=== PATIENT | female | born 1985 | race Caucasian/White ===

== ENCOUNTER 2016-11-30 21:49 | Outpatient (CLI) | payer MEDICAID ==
[~2016-11-30] VITALS: Ht 162.6 cm; Wt 71.4 kg
[~2016-11-30 21:49] MED LIST: ACET-141 PO; CEPH-443 PO; ERYT1OIN6 LEFT EYE; NPH10OT LEFT EAR
[2016-11-30 22:21] VITALS: BP 129/85; PULSE 73; RESP 18; Ht 162.6 cm; Wt 71.4 kg
[2016-11-30] MEDS ORDERED: PREN-93 PO (22:24)
--- NOTE | 2016-12-01 02:14 | PN ---
Date/Time of Note Date/Time of Note DATE: 12/01/16 TIME: 02:09 OB Subjective Subjective Subjective 31 Year-old with SIUP at 38 1/7 wks presents with a chief complaint of ucs. She has been receiving her care with Dr. Flowers. She states good movement. She denies nausea, vomiting, shortness of breath, chest pain, and abdominal pain between contractions, headache, visual changes, vaginal bleeding or LOF. OB Objective Objective Objective General: Patient appears well, alert and oriented, NAD, appropriate mood and affect ABD: gravid, soft, non-tender. Back: No CVA tenderness (B/L) LE: No clubbing, cyanosis, edema, thigh or calf tenderness bilaterally FHT: 135 bpm , moderate variability with acceleration, no deceleration-category I Contractions: Q 3-9 min.Pt is comfortable with those SVE: /-3/ceph/post/intact membrane OB Assessment/Plan Other plan: 31 Year-old with SIUP at 38 1/7 wks presents with a chief complaint of ucs. Patient is comfortable and ucs are mild - FHR: No sign of metabolic acidosis- Category I - Symptoms and sign of labor, preeclampsia, kick count discussed with patient, she voiced understanding. All of her questions answered. - Patient was discharged home in stable condition with the appropriate discharge instructions provided. I would like patient to have close follow-up with her primary physician or outpatient clinic in 1-2 days or return to the triage for worsening symptoms or any other urgent concerns. GISELLE CARNES December 01, 2016 02:14
== END 2016-11-30 23:43 | disposition home or self-care (01) ==
LOC: L-D 21:49 → OBT 21:49
PROVIDERS: ATTEND Obstetrics & Gynecology
DX: O62.9 Abnormality of forces of labor, unspecified (principal); Z3A.38 38 weeks gestation of pregnancy
CPT/HCPCS: G0463

== ENCOUNTER 2016-12-02 04:15 | Inpatient (IN) | payer MEDICAID ==
[2016-12-02] VITALS (17 sets, daily range): BP systolic 108–148; BP diastolic 57–96; PULSE 69–97; RESP 16–21; Ht 157.5 cm; Wt 71.0 kg
[~2016-12-02] VITALS: Ht 157.5 cm; Wt 71.0 kg
[~2016-12-02 04:15] MED LIST changes: -ACET-141 PO; -CEPH-443 PO; -ERYT1OIN6 LEFT EYE; -NPH10OT LEFT EAR; +PREN-93 PO
[2016-12-02] MEDS ORDERED: LACTATED RINGER'S 1,000 ML IV SCH (05:21)
[2016-12-02] MEDS ORDERED: METHYLERGONOVINE 0.2 MG INJ IM PRN ×2 (05:30→16:00)
[2016-12-02] MEDS ORDERED: LIDOCAINE 1% (MPF) 30 ML INJ INJ PRN (05:30)
[2016-12-02] MEDS ORDERED: LACTATED RINGER'S 1,000 ML IV PRN (05:30)
[2016-12-02] MEDS ORDERED: OXYTOCIN 30 UNITS/LR 500 ML IV PRN ×2 (05:30→16:00)
[2016-12-02] MEDS ORDERED: OXYTOCIN 30 UNITS/LR 500 ML IV SCH ×2 (05:30)
[2016-12-02] MEDS ORDERED: IBUPROFEN 600 MG TAB PO PRN (05:30)
[2016-12-02] MEDS ORDERED: BUTORPHANOL 2 MG INJ IV PRN (05:30)
[2016-12-02] MEDS ORDERED: CARBOPROST 250 MCG INJ IM PRN ×2 (05:30→16:00)
[2016-12-02] MEDS ORDERED: AMPICILLIN 2 GM/NS (PMX) 100 ML IV ONE (05:30)
[2016-12-02] MEDS ORDERED: MISOPROSTOL 200 MCG TAB PR PRN ×2 (05:30→16:00)
[2016-12-02 05:49] LABS: ADD SCAN DIFF NO
[2016-12-02] MEDS ORDERED: MAGNESIUM SULFATE 4 GM/100 ML 100 ML ONE (05:49)
[2016-12-02] MEDS ORDERED: MAGNESIUM SULFATE 4 GM/100 ML 100 ML IV ONE (06:00)
--- NOTE | 2016-12-02 06:00 | TRIAGE ---
OB Triage Datetime Report Generated by CPN: 12/02/2016 05:59 Datetime: 12/02/2016 05:35 Vaginal Exam Dilatation (cms): 9.5 Effacement (%): 100 Station: 0 Exam By: long term Membrane Status: Bulging Datetime: 12/02/2016 05:05 Stage of : Labor Assessment Type: Admission Assessment Vaginal Bleeding: None Maternal Assessment Level of Consciousness: Fully Conscious DTR's/Clonus: DTRs 2+; No Clonus Headache: Denies Blurred Vision: No Respiratory Effort: Unlabored; Regular Rhythm; Equal Expansion Breath Sounds, Left: Clear and Equal Breath Sounds, Right: Clear and Equal Nausea/Vomiting: Denies RUQ Epigastric Pain: Denies Lower Extremities Edema: None Degree: None Upper Extremities Edema: None Degree: None Facial Edema: None Fall Risk Assessment History of Falling: (0) No Secondary Diagnosis: (0) No Ambulatory Aid: (0) Bedrest/Nurse Assist IV Therapy: (20) Yes Gait: (0) Normal/Bedrest/Immobile Mental Status: (0) Oriented to Own Ability Fall Score: 20 Fall Risk Score Definition: No Risk: No action required Labor Evaluation Frequency: 2-3 Duration (sec)2399: 60-90 Quality: Moderate Pattern: Normal: <= 5 Contractions in 10 Minutes Resting Tone [place]: Relaxed Heart Rate FHR Baseline Rate: 120 Variability: Moderate 6-25 bpm Accelerations: 15X15 Decelerations: None Category: Category I Pain Assessment Pain Scale: 7 Pain Presence: Intermittent Pain Type: Contraction Pain Location: Abdomen Pain Goal: 4 Membrane Status: Bulging Datetime: 12/02/2016 04:50 Time of Arrival: 12/02/2016 04:50 EGA: 38.3 Arrived By: Stretcher Arrived From: TRIAGE Chief Complaint: uc's x3days Movement: Present Contractions: Regular Contractions: q4min Rupture of Membranes: Denies Vaginal Bleeding: None Vaginal Discharge: Denies Recent Sexual Intercouse: Denies Abdominal Trauma: Not Applicable Time Provider Notified: 12/02/2016 05:00 Provider Notified: delshad Initial Plan: efm, call ob Datetime: 12/02/2016 04:40 Vaginal Exam Dilatation (cms): 8.0 Effacement (%): 100 Station: -1 Exam By: HALF-WAY Membrane Status: Bulging Datetime: 11/30/2016 23:52 Labor Evaluation Frequency: IRREGULAR Monitor Mode: External Duration (sec)2399: 40-120 Quality: Mild Pattern: Normal: <= 5 Contractions in 10 Minutes Resting Tone [place]: Relaxed Heart Rate FHR Baseline Rate: 125 Monitor Mode: External US FHR Baseline Changes: No Baseline Change Variability: Moderate 6-25 bpm Accelerations: 15X15 Decelerations: None Category: Category I Comments: PT OFF MONITOR Datetime: 11/30/2016 23:43 Stage of : OB Triage Datetime: 11/30/2016 23:37 Pain Assessment Pain Scale: 0 Pain Presence: None/Denies Datetime: 11/30/2016 23:00 Labor Evaluation Frequency: 2-10 Monitor Mode: External Duration (sec)2399: 40-120 Quality: Mild Pattern: Normal: <= 5 Contractions in 10 Minutes Resting Tone [place]: Relaxed Heart Rate FHR Baseline Rate: 125 Monitor Mode: External US FHR Baseline Changes: No Baseline Change Variability: Moderate 6-25 bpm Accelerations: 15X15 Decelerations: None Category: Category I Vaginal Exam Dilatation (cms): 1.0 Effacement (%): 70 Station: -3 Exam By: DANO MOREJON Vaginal Bleeding: None Cervix, Consistency: Firm Cervix, Position: Posterior Presentation 'A': Cephalic Datetime: 11/30/2016 22:14 Stage of : OB Triage Time of Arrival: 11/30/2016 22:14 EGA: 38.1 Arrived By: Wheelchair Arrived From: Home Chief Complaint: CONTRACTIONS SINCE 1800 Movement: Present Time Contractions Began: 11/30/2016 18:00 Rupture of Membranes: Unsure Vaginal Discharge: Present Recent Sexual Intercouse: Denies Abdominal Trauma: Not Applicable Patient Complaints: None Time Provider Notified: 11/30/2016 23:02 (Annotations: Data stored by N on behalf of user) Provider Notified: DR CARNES Initial Plan: CALL AMARA GUZMAN Maternal Assessment Level of Consciousness: Fully Conscious DTR's/Clonus: DTRs 2+; No Clonus Headache: Denies Blurred Vision: No Respiratory Effort: Unlabored; Regular Rhythm; Equal Expansion Breath Sounds, Left: Clear and Equal Breath Sounds, Right: Clear and Equal Nausea/Vomiting: Denies RUQ Epigastric Pain: Denies Lower Extremities Edema: Bilateral Lower Extremities Degree: 1+ Upper Extremities Edema: None Degree: None Facial Edema: None Temperature Route: Oral Fall Risk Assessment History of Falling: (0) No Secondary Diagnosis: (0) No Ambulatory Aid: (0) Bedrest/Nurse Assist IV Therapy: (0) No Gait: (0) Normal/Bedrest/Immobile Mental Status: (0) Oriented to Own Ability Fall Score: 0 Fall Risk Score Definition: No Risk: No action required Monitor Mode: External Monitor Mode: External US Pain Assessment Pain Scale: 0
[2016-12-02 06:04] LABS: BASOPHILS % 0.2 % (0.0-2.0); EOSINOPHILS % 0.5 % (0.0-7.0); HEMATOCRIT 40.4 % (37.0-47.0); HEMOGLOBIN 13.8 g/dl (12.0-16.0); LYMPHOCYTES # 1.9 10^3/ul (0.8-2.9); LYMPHOCYTES % 23.2 % (15.0-51.0); MEAN CORPUSCULAR HEMOGLOBIN 31.9 pg (29.0-33.0); MEAN CORPUSCULAR HGB CONC 34.2 g/dl (32.0-37.0); MEAN CORPUSCULAR VOLUME 93.3 fl (82.0-101.0); MEAN PLATELET VOLUME 9.7 fl (7.4-10.4); MONOCYTE # 0.5 10^3/ul (0.3-0.9); MONOCYTES % 5.6 % (0.0-11.0); NEUTROPHIL # 5.7 10^3/ul (1.6-7.5); NEUTROPHILS % 69.9 % (39.0-77.0); PLATELET COUNT 278 10^3/UL (140-415); RED BLOOD COUNT 4.33 10^6/ul (4.20-5.40); RED CELL DISTRIBUTION WIDTH 13.3 % (11.5-14.5); WHITE BLOOD COUNT 8.1 10^3/ul (4.8-10.8)
[2016-12-02 06:15] LABS: INR 0.88; PARTIAL THROMBOPLASTIN TIME 28.5 Sec (25.0-35.0); PROTIME 11.9 Sec (12.2-14.2); PT RATIO 0.9
[2016-12-02 06:18] LABS: ALBUMIN 3.4 g/dl (3.3-4.9); POTASSIUM 3.7 mmol/L (3.5-5.1)
[2016-12-02] MEDS: MAGNESIUM SULFATE 20 GM/500 ML 500 ML IV SCH ×2 (06:20→17:48)
[2016-12-02 06:21] LABS: ALBUMIN/GLOBULIN RATIO 0.79; BILIRUBIN,INDIRECT 0.7 mg/dl (0-1.1); BILIRUBIN,TOTAL 0.7 mg/dl (0.2-1.3); CREATININE 0.59 mg/dl (0.44-1.00); TOTAL PROTEIN 7.7 g/dl (6.1-8.1)
[2016-12-02 08:39] LABS: ADD UMIC YES; URINE BILIRUBIN (Dip) NEGATIVE (NEGATIVE); URINE BLOOD (Dip) 1+ (NEGATIVE); URINE COLOR LT. YELLOW (YELLOW); URINE GLUCOSE (Dip) NEGATIVE (NEGATIVE); URINE KETONES (Dip) NEGATIVE (NEGATIVE); URINE LEUKOCYTE ESTERASE (Dip) NEGATIVE (NEGATIVE); URINE NITRITE (Dip) NEGATIVE (NEGATIVE); URINE TOTAL PROTEIN (Dip) NEGATIVE (NEGATIVE); URINE UROBILINOGEN (Dip) 0.2 E.U./dL (0.1-1.0)
[2016-12-02 08:57] LABS: BARBITURATES NEGATIVE (NEGATIVE); BENZODIAZEPINES NEGATIVE (NEGATIVE); CANNABINOIDS NEGATIVE (NEGATIVE); COCAINE NEGATIVE (NEGATIVE); OPIATES NEGATIVE (NEGATIVE)
[2016-12-02 09:04] LABS: URINE RBCS 0-2 /HPF (0)
--- NOTE | 2016-12-02 09:06 | LDN ---
Date/Time of Note Date/Time of Note DATE: 12/02/16 TIME: 09:01 Delivery Summary Normal spontaneous vaginal delivery of a baby girl from OA position shoulders delivered without any difficulties rest of the baby's body follow cord clamped after stopped pulsation, placenta spontaneous expulsion inspected complete blood loss 250 cc Weeks of Gestation 38 weeks 3 days Placenta Delivered: Spontaneously Meconium: Thick Episiotomy: No Sponge & Needle done & correct: Yes All needle counts correct: Yes Any foreign bodies felt in the: No Problems: Infant Delivery Information Sex Infant Sex: female Apgars 1 Minute: 9 5 Minute: 9 Suctioning Nose & mouth suctioned at tammy: Yes Delee suction performed: No Umbilical Cord Umbilical cord with: 3 Vessels Cord presentations: nuchal cord Cord Blood was obtained: Yes CARMELA DAVIDSON MD December 02, 2016 09:06
--- NOTE | 2016-12-02 09:20 | HP ---
Date/Time of Note Date/Time of Note DATE: 12/02/16 TIME: 09:08 OB - History Hx of Present Free Text/Dictation 30 years old female 2 para1 EDC December 13, 2016 admitted to [facility] in labor pelvic examination on admission cervical dilatation 3-4 cm 80% effacement vertex at -2 station category 1 heart tracing contractions every 3-5 minutes, to note toward the latter part of the patient was diagnosed with mild pih she was placed on magnesium sulfate during the course of her labor. We will continue for 24 hours Chief Complaint: Labor contraction Estimated Due Date: December 13, 2016 : 2 Para: 1 Care: Limited Care Ultrasounds: Normal mid trimester US Obstetrical Complications: Pre-eclampsia Medical Complications: None Past Family/Social History * Past Medical, Surgical, Family and Obstetric Histories reviewed from chart. Rubella: immune RPR/VDRL: Negative GBS Status: Negative HBsAG: Negative OB Admission Exam Vital Signs Vital Signs Vital Signs Date Time Temp Pulse Resp B/P Pulse Ox O2 Delivery O2 Flow Rate FiO2 12/02/16 04:50 97.7 69 18 148/96 Room Air Physical Exam HEENT: WNL Heart: Rhythm Normal Lungs: Clear, Equal Abdomen: WNL Extremities: Normal Reflexes: Normal Cervical Dilatation: 3cm Effacement: 75% Station: -2 Membranes: Intact Heart Rate: 130's Accelerations: Accelerations Present Decelerations: No Decelerations Varibility: Moderate Contractions on Admission: < 5 Minutes Apart Intensity: Moderate Last 72 hours Lab Results CBC & BMP 12/02/16 05:30 Liver Function Test 12/02/16 05:30 Alanine Aminotransferase (ALT/SGPT) 22 Albumin 3.4 Alkaline Phosphatase 248 H Aspartate Amino Transf (AST/SGOT) 24 Direct Bilirubin 0.00 Total Protein 7.7 Magnesium Level Test 12/02/16 05:30 Magnesium Level 1.9 CARMELA DAVIDSON MD December 02, 2016 09:18
[2016-12-02] MEDS ORDERED: AMPICILLIN 1 GM/NS (PMX) 50 ML IV SCH (09:30)
[2016-12-02] MEDS: LACTATED RINGER'S 1,000 ML IV* SCH ×2 (15:54→22:29)
[2016-12-02] MEDS ORDERED: BENZOCAINE 20% 56 ML SPRAY TOP PRN (16:30)
[2016-12-02] MEDS ORDERED: LANOLIN 7 GM TUBE TOP PRN (16:30)
[2016-12-02] MEDS ORDERED: DIBUCAINE 1% 30 GM OINT PR PRN (16:30)
[2016-12-02] MEDS ORDERED: WITCH HAZEL/GLYCERIN PAD PR PRN (16:30)
[2016-12-02] MEDS: IBUPROFEN 600 MG TAB PO SCH ×2 (18:00→23:31)
[2016-12-02] MEDS: SENNA/DOCUSATE NA (8.6MG/50MG) TAB PO PRN (21:56)
[2016-12-03] VITALS (11 sets, daily range): BP systolic 102–139; BP diastolic 55–82; PULSE 65–101; RESP 18–21
[2016-12-03] MEDS: MAGNESIUM SULFATE 20 GM/500 ML 500 ML IV SCH (03:30)
[2016-12-03] MEDS: IBUPROFEN 600 MG TAB PO SCH ×2 (05:31→13:11)
[2016-12-03 08:19] LABS: ADD SCAN DIFF NO
[2016-12-03 08:43] LABS: BASOPHILS % 0.1 % (0.0-2.0); EOSINOPHILS % 0.4 % (0.0-7.0); HEMATOCRIT 28.4 % (37.0-47.0); HEMOGLOBIN 9.9 g/dl (12.0-16.0); LYMPHOCYTES # 2.1 10^3/ul (0.8-2.9); LYMPHOCYTES % 22.1 % (15.0-51.0); MEAN CORPUSCULAR HEMOGLOBIN 32.5 pg (29.0-33.0); MEAN CORPUSCULAR HGB CONC 34.9 g/dl (32.0-37.0); MEAN CORPUSCULAR VOLUME 93.1 fl (82.0-101.0); MEAN PLATELET VOLUME 9.9 fl (7.4-10.4); MONOCYTE # 0.4 10^3/ul (0.3-0.9); MONOCYTES % 4.5 % (0.0-11.0); NEUTROPHILS % 72.5 % (39.0-77.0); PLATELET COUNT 225 10^3/UL (140-415); RED BLOOD COUNT 3.05 10^6/ul (4.20-5.40); RED CELL DISTRIBUTION WIDTH 13.5 % (11.5-14.5); WHITE BLOOD COUNT 9.6 10^3/ul (4.8-10.8)
[2016-12-03] MEDS: SENNA/DOCUSATE NA (8.6MG/50MG) TAB PO PRN (09:35)
[2016-12-03 13:07] LABS: RUBELLA ANTIBODY - IGG 8.82 index
--- NOTE | 2016-12-03 20:51 | PN ---
Date/Time of Note Date/Time of Note DATE: 12/03/16 TIME: 20:48 OB Subjective Subjective Subjective ppd1 afebrile abdomen soft ut.firm lochia normal ext nl Laboratory Tests Test 12/03/16 00:30 12/03/16 08:05 Magnesium Level 5.4mg/dl 6.3mg/dl White Blood Count 9.610^3/ul Red Blood Count 3.0510^6/ul Hemoglobin 9.9g/dl Hematocrit 28.4% Mean Corpuscular Volume 93.1fl Mean Corpuscular Hemoglobin 32.5pg Mean Corpuscular Hemoglobin Concent 34.9g/dl Red Cell Distribution Width 13.5% Platelet Count 62202^3/UL Mean Platelet Volume 9.9fl Neutrophils % 72.5% Lymphocytes % 22.1% Monocytes % 4.5% Eosinophils % 0.4% Basophils % 0.1% Nucleated Red Blood Cells % 0.0/100WBC Neutrophils # 7.010^3/ul Lymphocytes # 2.110^3/ul Monocytes # 0.410^3/ul Eosinophils # 0.010^3/ul Basophils # 0.010^3/ul Nucleated Red Blood Cells # 0.010^3/ul Current Medications Medications (Trade) Dose Ordered Sig/Vinicio Route PRN Reason Start Time Stop Time Status Last Admin Dose Admin Lactated Ringer's 1,000 ml @ 125 mls/hr Q8H IV 12/02/16 05:21 12/02/16 15:57 DC 12/02/16 05:52 Ampicillin 100 ml @ 100 mls/hr ONCE ONCE IV 12/02/16 05:30 12/02/16 06:29 DC 12/02/16 05:53 Ampicillin (Ampicillin 1 Gm/ NS (Pmx)) 50 ml @ 100 mls/hr Q4H IV 12/02/16 09:30 12/02/16 15:57 DC Butorphanol Tartrate (Stadol) 2 mg Q2H PRN IV PAIN 12/02/16 05:30 12/02/16 15:57 DC 12/02/16 05:54 Lidocaine 30 ml 30 ml ONCE PRN INJ EPISIOTOMY/TEARING 12/02/16 05:30 12/02/16 15:57 DC Oxytocin/Lactated Ringer's 500 ml @ 125 mls/hr ONCE -MAY REPEAT X1 IV 12/02/16 05:30 12/02/16 15:57 DC 12/02/16 15:02 Oxytocin/Lactated Ringer's 500 ml @ 125 mls/hr ONCE IV 12/02/16 05:30 12/02/16 15:57 DC 12/02/16 08:32 Ibuprofen 600 mg 600 mg ONCE PRN PO Mild Pain (Pain Score 1-3) 12/02/16 05:30 12/02/16 15:57 DC Lactated Ringer's 1,000 ml @ 2,000 mls/hr Q30M PRN IV PRE-EPIDURAL BOLUS 12/02/16 05:30 12/02/16 15:57 DC Oxytocin/Lactated Ringer's 500 ml @ 0 mls/hr ONCE PRN IV For Hemorrhage Management 12/02/16 05:30 12/02/16 15:57 DC 12/02/16 08:11 Methylergonovine Maleate (Methergine) 0.2 mg ONCE PRN IM VAGINAL BLEEDING 12/02/16 05:30 12/02/16 15:57 DC Carboprost Tromethamine (Hemabate) 250 mcg ONCE PRN IM VAGINAL BLEEDING 12/02/16 05:30 12/02/16 15:57 DC 12/02/16 08:12 Misoprostol 1000 mcg 1,000 mcg ONCE PRN TN VAGINAL BLEEDING 12/02/16 05:30 12/02/16 15:57 DC Magnesium Sulfate 100 ml @ ud STK-MED ONCE .ROUTE 12/02/16 05:49 12/02/16 05:50 DC Magnesium Sulfate 100 ml @ 200 mls/hr ONCE ONCE IV 12/02/16 06:00 12/02/16 06:29 DC 12/02/16 05:57 Magnesium Sulfate 500 ml @ 50 mls/hr Q10H IV 12/02/16 06:30 12/03/16 09:30 DC 12/03/16 03:30 Lactated Ringer's 1,000 ml @ 125 mls/hr Q8H IV* 12/02/16 15:54 12/02/16 22:29 Oxytocin/Lactated Ringer's 500 ml @ 0 mls/hr ONCE PRN IV For Hemorrhage Management 12/02/16 16:00 Methylergonovine Maleate (Methergine) 0.2 mg ONCE PRN IM VAGINAL BLEEDING 12/02/16 16:00 Carboprost Tromethamine (Hemabate) 250 mcg ONCE PRN IM VAGINAL BLEEDING 12/02/16 16:00 Misoprostol (Cytotec) 1,000 mcg ONCE PRN TN VAGINAL BLEEDING 12/02/16 16:00 Ibuprofen (Motrin) 600 mg Q6 PO 12/02/16 18:00 12/03/16 13:11 Senna/Docusate Sodium (Senokot-S) 1 tab BID PRN PO CONSTIPATION 12/02/16 16:30 12/03/16 09:35 Witch Britt/ Glycerin (Tucks Pads) 1 pad BEDSIDE MEDICATION PRN TN HEMORRHOID/EPISIOTMY PAIN 12/02/16 16:30 Benzocaine (Dermoplast [place]) 1 spray BEDSIDE MEDICATION PRN TOP HEMORRHOID/EPISIOTMY PAIN 12/02/16 16:30 Dibucaine (Nupercainal) 1 applic BEDSIDE MEDICATION PRN TN HEMORRHOID/EPISIOTMY PAIN 12/02/16 16:30 Lanolin (Blo-H-Haayhh) 1 applic BEDSIDE MEDICATION PRN TOP BEDSIDE FOR SANCHEZ TO NIPPLES 12/02/16 16:30 12/03/16 09:35 CARMELA DAVIDSON MD December 03, 2016 20:51
[2016-12-04 04:00] VITALS: BP 132/71; PULSE 71; RESP 18
[2016-12-04] MEDS: IBUPROFEN 600 MG TAB PO SCH ×3 (05:49→12:00)
[2016-12-04 08:00] VITALS: BP 144/88; PULSE 74; RESP 16
--- NOTE | 2016-12-04 09:02 | PD.PPDC ---
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
--- NOTE | 2016-12-04 09:04 | DS ---
Date/Time of Note Date/Time of Note DATE: 12/04/16 TIME: 09:02 Discharge Summary Admission/Discharge Info Admit Date/Time December 02, 2016 at 05:00 Discharge Date/Time Many 19 at 0 900 Final Diagnosis Day 2 post normal vaginal delivery Patient Condition: Good Procedures Normal vaginal delivery Hx of Present Illness Term Hospital Course Uneventful satisfactory Home Meds Reported Medications Vit No.124/Iron/FA ( Vitamin Tablet) 1 Each Tablet, 1 EACH PO, TAB 11/30/16 Follow-up Plan Appointment clinic in 2 weeks for check Primary Care Provider Care Physician No Primary Time spent on discharge: > 30 minutes CARMELA DAVIDSON MD December 04, 2016 09:04
== END 2016-12-04 15:00 | disposition home or self-care (01) | DRG 775 ==
LOC: OBT 04:15 → L-D 04:15 → OBT 05:00 → PP1 09:40
PROVIDERS: ADMIT Obstetrics & Gynecology; ATTEND Obstetrics & Gynecology
PROC: 10E0XZZ Delivery of Products of Conception, External Approach (ICD-10-PCS; principal; 2016-12-02)
DX: O69.81X0 Labor and delivery complicated by cord around neck, without compression, not applicable or unspecified (principal); Z37.0 Single live birth; Z3A.38 38 weeks gestation of pregnancy
CPT/HCPCS: 80053; 80307; 81001; 81003; 83735; 84560; 85025; 85610; 85730; 86592; 86762; 86900; 86901; 87340; 99464; G0463; J0290; J2590; J3475; J7120

== ENCOUNTER 2018-09-18 21:07 | Outpatient (CLI) | payer MEDICAID ==
[~2018-09-18] VITALS: Ht 154.9 cm; Wt 60.0 kg
[2018-09-18 21:14] VITALS: BP 132/93; PULSE 111; RESP 20; Ht 154.9 cm; Wt 60.0 kg
[2018-09-18] MEDS ORDERED: LACTATED RINGER'S 1,000 ML IV ONE (22:00)
--- NOTE | 2018-09-19 | TRIAGE ---
OB Triage Datetime Report Generated by CPN: 09/18/2018 23:59 Datetime: 09/18/2018 23:01 Stage of : OB Triage Datetime: 09/18/2018 22:31 Stage of : OB Triage Labor Evaluation Frequency: Irregular Monitor Mode: External Duration (sec)2399: 50-70 Resting Tone [place]: Relaxed Heart Rate FHR Baseline Rate: 155 Monitor Mode: External US Variability: Moderate 6-25 bpm Accelerations: 15X15 Decelerations: None Pain Assessment Pain Scale: 7 Pain Presence: Intermittent Pain Type: Ache Pain Location: Abdomen; Right Chest; Left Chest Pain Relief Measures: Comfort Measures Pain Assessment Comments: chest pain upon coughing Datetime: 09/18/2018 21:45 Stage of : OB Triage Datetime: 09/18/2018 21:30 Stage of : OB Triage Assessment Type: Triage Maternal Assessment Level of Consciousness: Fully Conscious DTR's/Clonus: DTRs 2+; No Clonus Headache: Denies Blurred Vision: No Respiratory Effort: Unlabored; Regular Rhythm; Equal Expansion Breath Sounds, Left: Clear and Equal Breath Sounds, Right: Clear and Equal Nausea/Vomiting: Hx of Nausea/Vomiting RUQ Epigastric Pain: Denies Lower Extremities Edema: None Degree: None Upper Extremities Edema: None Degree: None Facial Edema: None Temperature Route: Oral Fall Risk Assessment History of Falling: (0) No Secondary Diagnosis: (0) No Ambulatory Aid: (0) Bedrest/Nurse Assist IV Therapy: (0) No Gait: (0) Normal/Bedrest/Immobile Mental Status: (0) Oriented to Own Ability Fall Score: 0 Fall Risk Score Definition: No Risk: No action required Labor Evaluation Frequency: Occasional Monitor Mode: External Duration (sec)2399: 40-60 Contraction Comments: Patient denies feeling contractions Heart Rate FHR Baseline Rate: 160 Monitor Mode: External US FHR Baseline Changes: Tachycardia Variability: Moderate 6-25 bpm Accelerations: Prolonged Decelerations: None Pain Assessment Pain Scale: 7 Pain Presence: Intermittent Pain Type: Ache Pain Location: Abdomen; Back; Right Chest; Left Chest Pain Relief Measures: Comfort Measures Pain Assessment Comments: patient states pain is present only when she coughs, not at rest Datetime: 09/18/2018 21:28 Stage of : OB Triage Datetime: 09/18/2018 21:20 Stage of : OB Triage Datetime: 09/18/2018 21:16 EGA: 30.2 Datetime: 09/18/2018 21:15 Time of Arrival: 09/18/2018 20:55 Arrived By: Wheelchair Arrived From: Emergency Dept Movement: Present Contractions: Denies/Absent Rupture of Membranes: Denies Vaginal Bleeding: None Vaginal Discharge: Denies Recent Sexual Intercouse: Denies Abdominal Trauma: Not Applicable Patient Complaints: Back Pain; Nausea; Vomiting; Cough; Other Additional Patient Complaints: Chest pain upon coughing Time Provider Notified: 09/18/2018 21:20 Provider Notified: Initial Plan: VS, KINGSLEYT, BPP
[2018-09-19] MEDS ORDERED: AZIT250T PO (03:51)
[2018-09-19] MEDS ORDERED: ALBU18HF INHALATION (03:51)
== END 2018-09-18 23:43 | disposition home or self-care (01) ==
LOC: OBT 21:07 → L-D 21:10 → OBT 23:43
PROVIDERS: ATTEND Obstetrics & Gynecology
DX: O26.893 Other specified pregnancy related conditions, third trimester (principal); R07.9 Chest pain, unspecified; R10.2 Pelvic and perineal pain; Z3A.30 30 weeks gestation of pregnancy
CPT/HCPCS: 36415; 76818; 81003; 85025; 87086; 96360; J7120; Z7500; G0463

== ENCOUNTER 2018-09-18 23:52 | Emergency (ER) | payer MEDICAID ==
[~2018-09-18] VITALS: Ht 154.9 cm; Wt 60.0 kg
[2018-09-19 00:06] VITALS: Ht 154.9 cm; Wt 60.0 kg
[2018-09-19] MEDS ORDERED: ALBUTEROL 0.083% (NEB) 2.5 MG/3 ML AMP NEB STA (00:07)
[2018-09-19] MEDS ORDERED: ACETAMINOPHEN 325 MG TAB PO STA (00:07)
[2018-09-19] MEDS ORDERED: IPRATROPIUM (NEB) 0.5 MG/2.5 ML AMP NEB STA (00:07)
--- NOTE | 2018-09-19 00:47 | PN ---
Triage Information Date/Time 09/18/18/ Reason for visit: chest pain and back pain with cough Weeks of Gestation 30w2d /Para Diabetes: none Hypertention: none Objective Vital Signs Date Temp Pulse Resp B/P (MAP) Pulse Ox O2 O2 Flow FiO2 Time Delivery Rate 09/19/18 102.4 00:24 09/19/18 117 20 96 21 00:20 09/19/18 116/74 00:06 (88) Heart Rate: 150's Heart Rate Comments CAT I tracing Contractions: >10 Minutes Apart Results/Medications Imaging Results BPP 02/23 KIRBY 29 Disposition: Assessment/Plan IUP 30w2d polyhydramnios back pain chest pain P to ER for further evaluation for chest pain and cough u/s copy given to patient for f/u for polyhydramnios ALVINA GOODRICH MD Sep 19, 2018 00:47
[2018-09-19] MEDS ORDERED: SOD CHLORIDE 0.9% 1,800 ML IV ONE (01:30)
[2018-09-19] MEDS ORDERED: AZIT250T PO (03:51)
[2018-09-19] MEDS ORDERED: ALBU18HF INHALATION (03:51)
[2018-09-19 04:05] VITALS: BP 118/75; PULSE 101; RESP 16
--- NOTE | 2018-09-19 04:31 | ERD ---
ER Documentation Chief Complaint Chief Complaint COUGH X 3 DAYS, C/O CP X 2 DAYS HPI This is a very pleasant 32-year-old complains of cough for 3 days. Cough is some mild chest pain but only when she coughs. She was evaluated upstairs mildly as she has over 20 weeks . She also complains of alternating fevers and chills. No vaginal bleeding. No abdominal pain. No other current complaints. ROS All systems reviewed and are negative except as per history of present illness. Medications Home Meds Active Scripts Azithromycin* (Zithromax*) 250 Mg Tablet, 250 MG PO .ZPACK DIRECTED, #6 TAB TAKE 500 MG (2 TABS) THE FIRST DAY THEN 250 MG (1 TAB) DAYS 2-5 Prov:LUIS GODOY 09/19/18 Albuterol Sulfate* (Ventolin HFA*) 18 Gm Hfa.aer.ad, 2 PUFF INHALATION Q4H, #1 INHALER Prov:LUIS GODOY 09/19/18 Reported Medications Vit No.124/Iron/FA ( Vitamin Tablet) 1 Each Tablet, 1 EACH PO, TAB 11/30/16 Allergies Allergies: Coded Allergies: No Known Allergy (Unverified , 11/30/16) PMhx/Soc Medical and Surgical Hx: pt denies Medical Hx, pt denies Surgical Hx History of Surgery: No Anesthesia Reaction: No Hx Neurological Disorder: No Hx Respiratory Disorders: No Hx Cardiac Disorders: No Hx Psychiatric Problems: No Hx Miscellaneous Medical Probl: Yes (ARTHRITIS) Hx Alcohol Use: No Hx Substance Use: No Hx Tobacco Use: No Smoking Status: Never smoker Physical Exam Vitals Vital Signs Date Temp Pulse Resp B/P (MAP) Pulse Ox O2 O2 Flow FiO2 Time Delivery Rate 09/19/18 101.9 120 16 118/76 99 Room Air 01:27 (90) 09/19/18 102.4 00:24 09/19/18 117 20 96 21 00:20 09/19/18 102.4 120 24 116/74 94 00:06 (88) Physical Exam Const: No acute distress Head: Atraumatic Eyes: Normal Conjunctiva ENT: Normal External Ears, Nose and Mouth. Neck: Full range of motion. No meningismus. Resp: Clear to auscultation bilaterally Cardio: Regular rate and rhythm, no murmurs Abd: Soft, non tender, non distended. Normal bowel sounds Skin: No petechiae or rashes Back: No midline or flank tenderness Ext: No cyanosis, or edema Neur: Awake and alert Psych: Normal Mood and Affect Result Diagram: 09/19/18 0042 09/19/18 0042 Results 24 hrs Laboratory Tests Test 09/19/18 00:42 09/19/18 02:54 White Blood Count 7.1 10^3/ul Red Blood Count 3.69 10^6/ul Hemoglobin 11.0 g/dl Hematocrit 32.9 % Mean Corpuscular Volume 89.2 fl Mean Corpuscular Hemoglobin 29.8 pg Mean Corpuscular Hemoglobin Concent 33.4 g/dl Red Cell Distribution Width 14.2 % Platelet Count 258 10^3/UL Mean Platelet Volume 8.7 fl Immature Granulocytes % 0.600 % Neutrophils % 74.3 % Lymphocytes % 20.9 % Monocytes % 4.1 % Eosinophils % 0.0 % Basophils % 0.1 % Nucleated Red Blood Cells % 0.0 /100WBC Immature Granulocytes # 0.040 10^3/ul Neutrophils # 5.2 10^3/ul Lymphocytes # 1.5 10^3/ul Monocytes # 0.3 10^3/ul Eosinophils # 0.0 10^3/ul Basophils # 0.0 10^3/ul Nucleated Red Blood Cells # 0.0 10^3/ul Prothrombin Time 12.6 Sec Prothrombin Time Ratio 1.0 INR International Normalized Ratio 0.93 Activated Partial Thromboplast Time 31.8 Sec Sodium Level 136 mmol/L Potassium Level 3.5 mmol/L Chloride Level 105 mmol/L Carbon Dioxide Level 20 mmol/L Anion Gap 11 Blood Urea Nitrogen 5 mg/dl Creatinine 0.43 mg/dl Est Glomerular Filtrat Rate mL/min > 60 mL/min Glucose Level 92 mg/dl Lactic Acid Level 1.1 mmol/L 0.9 mmol/L Calcium Level 8.0 mg/dl Total Bilirubin 0.7 mg/dl Direct Bilirubin 0.00 mg/dl Indirect Bilirubin 0.7 mg/dl Aspartate Amino Transf (AST/SGOT) 24 IU/L Alanine Aminotransferase (ALT/SGPT) 10 IU/L Alkaline Phosphatase 209 IU/L Troponin I < 0.012 ng/ml Total Protein 7.7 g/dl Albumin 3.2 g/dl Globulin 4.50 g/dl Albumin/Globulin Ratio 0.71 Current Medications Medications Dose Sig/Vinicio Start Time Status Last (Trade) Ordered Route PRN Stop Time Admin Dose Reason Admin 650 mg ONCE STAT 09/19/18 DC 09/19/18 Acetaminophen PO 00:07 09/19/18 00:24 (Tylenol 00:09 Tab) Albuterol 5 mg ONCE STAT 09/19/18 DC 09/19/18 (Proventil NEB 00:07 09/19/18 00:20 0.083% (Neb)) 00:09 Ipratropium 0.5 mg ONCE STAT 09/19/18 DC 09/19/18 [place] NEB 00:07 09/19/18 00:20 (Atrovent 00:09 0.02% (Neb)) Sodium 1,800 ml @ BOLUS X1 09/19/18 DC 09/19/18 Chloride 1,800 mls/hr ONCE IV 01:30 09/19/18 01:33 02:29 Procedures/MDM Emergency room course: Patient seen and evaluated triage nurse. Placed in bed from evaluation. Had a breathing treatment. Given fluids and Tylenol. Serial exams are stable patient felt much better EKG: Rate/Rhythm: Sinus tachycardia QRS, ST, T-waves: [No changes consistent w/ acute ischemia] Impression: Sinus tachycardia Medical decision making: This is a very pleasant patient as well as with mild bronchitis. She feels much better post breathing treatment. She will be discharged home with azithromycin and albuterol. She is to follow with primary care physician return for worsening symptoms. Departure Diagnosis: Primary Impression: Bronchitis Condition: Stable Patient Instructions: Bronchitis With Wheezing (Adult) LUIS GODOY Sep 19, 2018 04:31
== END 2018-09-19 04:28 | disposition home or self-care (01) ==
LOC: E/R 23:52
DX: O99.512 Diseases of the respiratory system complicating pregnancy, second trimester (principal); J40 Bronchitis, not specified as acute or chronic; R07.9 Chest pain, unspecified; Z3A.20 20 weeks gestation of pregnancy
CPT/HCPCS: 80053; 83605; 84484; 85025; 85610; 85730; 87040; 87400; 93005; 94664; J7030; Z7502; Z7610

== ENCOUNTER 2018-10-08 22:38 | Emergency (ER) | payer MEDICAID ==
[~2018-10-08] VITALS: Wt 59.7 kg
[~2018-10-08 22:38] MED LIST changes: +ALBU18HF INHALATION; +AZIT250T PO
[2018-10-09] MEDS ORDERED: ACETAMINOPHEN 500 MG TAB PO STA (03:06)
[2018-10-09] MEDS ORDERED: OSEL75CA23 PO (03:57)
[2018-10-09] MEDS ORDERED: ACET500C5 PO (03:58)
[2018-10-09] MEDS ORDERED: AMOX500C2 PO (03:58)
--- NOTE | 2018-10-09 04:21 | ERD ---
ER Documentation Chief Complaint Chief Complaint ST, CHILLS, BODY ACHES X'S 2 DAYS 8 MOS PG; (CLEARED BY L&D) HPI Patient is a 33-year-old female, G3, P2, approximately 8 weeks , pr esents to the ER for concerns of generalized body aches, chills, tactile fevers and sore throat times 2 days. Patient was cleared by OB team prior to arriving to the ER. Patient denies any vaginal bleeding, fluid loss or pelvic pain. Patient denies any nausea, vomiting, abdominal pain or diarrhea. Patient denies any chest pain or shortness of breath. Patient does report a mild dry cough. She denies any urinary symptoms. Patient denies any sick contacts. ROS All systems reviewed and are negative except as per history of present illness. Medications Home Meds Active Scripts Amoxicillin* (Amoxicillin*) 500 Mg Cap, 500 MG PO BID for 7 Days, CAP Prov:YEISON CHASE PA-C 10/09/18 Acetaminophen* (Tylophen*) 500 Mg Capsule, 1 CAP PO Q6H PRN for PAIN AND OR ELEVATED TEMP, #20 CAP Prov:YEISON CHASE PA-C 10/09/18 Oseltamivir Phosphate* (Tamiflu*) 75 Mg Capsule, 75 MG PO BID for 5 Days, CAP Prov:YEISON CHASE PA-C 10/09/18 Reported Medications Vit No.124/Iron/FA ( Vitamin Tablet) 1 Each Tablet, 1 EACH PO, TAB 11/30/16 Discontinued Scripts Azithromycin* (Zithromax*) 250 Mg Tablet, 250 MG PO .ZPACK DIRECTED, #6 TAB TAKE 500 MG (2 TABS) THE FIRST DAY THEN 250 MG (1 TAB) DAYS 2-5 Prov:LUIS GODOY 09/19/18 Albuterol Sulfate* (Ventolin HFA*) 18 Gm Hfa.aer.ad, 2 PUFF INHALATION Q4H, #1 INHALER Prov:LUIS GODOY 09/19/18 Allergies Allergies: Coded Allergies: No Known Allergy (Unverified , 10/08/18) PMhx/Soc History of Surgery: No Anesthesia Reaction: No Hx Neurological Disorder: No Hx Respiratory Disorders: No Hx Cardiac Disorders: No Hx Psychiatric Problems: No Hx Miscellaneous Medical Probl: Yes (ARTHRITIS) Hx Alcohol Use: No Hx Substance Use: No Hx Tobacco Use: No FmHx Family History: No diabetes Physical Exam Vitals Vital Signs Date Temp Pulse Resp B/P (MAP) Pulse Ox O2 O2 Flow FiO2 Time Delivery Rate 10/09/18 99.4 03:15 10/09/18 99.9 103 18 141/92 97 01:13 (108) Physical Exam GENERAL: Well-developed, well-nourished female. Appears in no acute distress. HEAD: Normocephalic, atraumatic. No deformities or ecchymosis. EYE: Pupils equal, round, and reactive to light. EOMs intact. No conjunctival erythema. No eye discharge. ENT: External ear without any masses or tenderness. Auditory canals clear bilaterally. TM visualized bilaterally, non-erythematous, non-bulging. Nasal mucosa pink with no discharge. Oropharynx is erythematous with 1+ tonsillar enlargement bilaterally. No exudates noted.. No uvula deviation. No kissing tonsils. NECK: Supple. No meningismus. Normal ROM of the neck. LUNG: Clear to auscultation bilaterally. No rhonchi, wheezing, rales or coarse breath sounds. HEART: Regular rate and rhythm. No murmurs, rubs or gallops. EXTREMITES: Equal pulses bilaterally. No peripheral clubbing, cyanosis or edema. No unilateral leg swelling. NEUROLOGIC: Alert and oriented to person, place and time. Moving all four extremities. 5/5 strength in all extremities. Normal speech. Steady gait. SKIN: Normal color. Warm and dry. No rashes or lesions. Results 24 hrs Current Medications Medications Dose Sig/Vinicio Start Time Status Last (Trade) Ordered Route PRN Stop Time Admin Dose Reason Admin 1,000 mg ONCE STAT 10/09/18 DC 10/09/18 Acetaminophen PO 03:06 03:15 (Tylenol 10/09/18 03:07 Tab) Procedures/MDM MEDICAL DECISION MAKING: This is a 33-year-old female presents the ER for concerns of generalized body aches, chills, sore throat and mild cough times 2 days. Patient denied any vaginal bleeding, fluid loss or pelvic pain. Patient was cleared by OB team prior to arriving to the ER.. Vital signs were reviewed. Patient was afebrile. Patient was not hypoxic. ENT exam was normal. Lung exam was normal. Influenza swab was negative. Patient will be started on Tamiflu as she does have influenza-like symptoms and she is . Patient will be also given amoxicillin for concerns of tonsillitis. Low suspicion for OB emergency, pneumonia, meningitis, sinusitis, otitis externa, acute otitis media, epiglottitis or peritonsillar abscess. Patient was nontoxic, non-ill appearing prior to discharge. PRESCRIPTIONS: Tylenol, Tamiflu, amoxicillin DISCHARGE: At this time, patient is stable for discharge and outpatient management. S upportive therapies such as OTC throat lozenges, salt water gurgles, popsicles and jello discussed. I have instructed the patient to follow-up with his/her primary care physician in 1-2 days. I have instructed the patient to promptly return to the ER for any new or worsening symptoms including increased pain, swelling, fever, nausea, vomiting, weakness or difficulty breathing. The patient and/or family expressed understanding of and agreement with this plan. All questions were answered. Home care instructions were provided. Disclaimer: Inadvertent spelling and grammatical errors are likely due to EHR/dictation software use and do not reflect on the overall quality of patient care. Also, please note that the electronic time recorded on this note does not necessarily reflect the actual time of the patient encounter. Departure Diagnosis: Primary Impression: Weeks of gestation: unspecified Qualified Codes: Z34.90 - Encounter for supervision of normal , unspecified, unspecified trimester Additional Impression: Influenza-like illness Condition: Stable Patient Instructions: Influenza (Adult) Referrals: [facility] YOU HAVE RECEIVED A MEDICAL SCREENING EXAM AND THE RESULTS INDICATE THAT YOU DO NOT HAVE A CONDITION THAT REQUIRES URGENT TREATMENT IN THE EMERGENCY DEPARTMENT. FURTHER EVALUATION AND TREATMENT OF YOUR CONDITION CAN WAIT UNTIL YOU ARE SEEN IN YOUR DOCTORS OFFICE WITHIN THE NEXT 1-2 DAYS. IT IS YOUR RESPONSIBILITY TO MAKE AN APPOINTMENT FOR FOLOW-UP CARE. IF YOU HAVE A PRIMARY DOCTOR --you should call your primary doctor and schedule an appointment IF YOU DO NOT HAVE A PRIMARY DOCTOR YOU CAN CALL OUR PHYSICIAN REFERRAL HOTLINE AT IF YOU CAN NOT AFFORD TO SEE A PHYSICIAN YOU CAN CHOSE FROM THE FOLLOWING [facility] [address] [facility]. [facility] [address] [facility]. [facility] [address] [facility] [facility] [address] [facility] [address] [facility]. [facility]. [address] [facility]. [facility] YOU HAVE RECEIVED A MEDICAL SCREENING EXAM AND THE RESULTS INDICATE THAT YOU DO NOT HAVE A CONDITION THAT REQUIRES URGENT TREATMENT IN THE EMERGENCY DEPARTMENT. FURTHER EVALUATION AND TREATMENT OF YOUR CONDITION CAN WAIT UNTIL YOU ARE SEEN IN YOUR DOCTORS OFFICE WITHIN THE NEXT 1-2 DAYS. IT IS YOUR RESPONSIBILITY TO MAKE AN APPOINTMENT FOR FOLOW-UP CARE. IF YOU HAVE A PRIMARY DOCTOR --you should call your primary doctor and schedule and appointment IF YOU DO NOT HAVE A PRIMARY DOCTOR YOU CAN CALL OUR PHYSICIAN REFERRAL HOTLINE AT . IF YOU CAN NOT AFFORD TO SEE A PHYSICIAN YOU CAN CHOSE FROM THE FOLLOWING [facility] INSTITUTIONS: [facility] [address] [place] [address] [facility] [address] [place] [address] [facility] [address] [place] [address] Additional Instructions: Call your primary care doctor TOMORROW for an appointment during the next 1-2 days.See the doctor sooner or return here if your condition worsens before your appointment time. YEISON CHASE PA-C Oct 09, 2018 04:21
[2018-10-09 04:26] VITALS: BP 120/78; PULSE 96; RESP 20
== END 2018-10-09 04:27 | disposition home or self-care (01) ==
LOC: FTE 22:38
DX: O99.511 Diseases of the respiratory system complicating pregnancy, first trimester (principal); J11.1 Influenza due to unidentified influenza virus with other respiratory manifestations; Z3A.08 8 weeks gestation of pregnancy
CPT/HCPCS: 87400; Z7610; 99283

== ENCOUNTER 2018-10-08 23:00 | Outpatient (CLI) | payer MEDICAID ==
[~2018-10-08] VITALS: Ht 154.9 cm; Wt 59.7 kg
[2018-10-08 23:11] VITALS: BP 126/86; PULSE 120; RESP 18
[2018-10-08 23:23] VITALS: Ht 154.9 cm; Wt 59.7 kg
--- NOTE | 2018-10-09 02:12 | PN ---
Triage Information Date/Time 10/09/18 Reason for visit: fever and cough for wmo Weeks of Gestation 33w1d /Para A1 Diabetes: none Hypertention: none Additional information txed with antibiotics for 7days from 09/18 to 09/25 for bronchitis still coughing and having fever Objective Vital Signs Date Temp Pulse Resp B/P (MAP) Pulse Ox O2 O2 Flow FiO2 Time Delivery Rate 10/08/18 99.2 120 18 126/86 Room Air 23:11 (99) Heart Rate: 150's Heart Rate Comments CAT I tracing Contractions: None Results/Medications Results 24 hrs Laboratory Tests Test 10/08/18 23:08 Urine Color YELLOW Urine Clarity SLIGHTLY CLOUDY A Urine pH 7.0 Urine Specific [place] 1.018 Urine Ketones NEGATIVE Urine Nitrite NEGATIVE Urine Bilirubin NEGATIVE Urine Urobilinogen 1+ H Urine Leukocyte Esterase NEGATIVE Urine Microscopic RBC 1 Urine Microscopic WBC 0 Urine Squamous Epithelial Cells FEW Urine Bacteria FEW A Urine Hemoglobin NEGATIVE Urine Glucose NEGATIVE Urine Total Protein NEGATIVE Imaging Results BPP 8 KIRBY 17.92 Disposition: Assessment/Plan A IUP 33w1d S/P bronchitis ([place]) P to ER for futher evaluation ALVINA GOODRICH MD Oct 09, 2018 02:12
[2018-10-09] MEDS ORDERED: OSEL75CA23 PO (03:57)
[2018-10-09] MEDS ORDERED: AMOX500C2 PO (03:58)
[2018-10-09] MEDS ORDERED: ACET500C5 PO (03:58)
--- NOTE | 2018-10-09 05:03 | TRIAGE ---
OB Triage Datetime Report Generated by CPN: 10/09/2018 05:03 Datetime: 10/09/2018 00:48 Labor Evaluation Frequency: X1 Monitor Mode: External Duration (sec)2399: 60 Pattern: Normal: <= 5 Contractions in 10 Minutes Resting Tone [place]: Relaxed Contraction Comments: MILD UTERINE IRRITABILITY NOTED Heart Rate FHR Baseline Rate: 155 Monitor Mode: External US Variability: Moderate 6-25 bpm Accelerations: 15X15 Decelerations: None Category: Category I Datetime: 10/08/2018 23:36 Labor Evaluation Frequency: X0 Monitor Mode: External Duration (sec)2399: X0 Pattern: Normal: <= 5 Contractions in 10 Minutes Resting Tone [place]: Relaxed Contraction Comments: ABDOMEN SOFT UPON PALPATION. PT DENIES FEELING UC'S OR CRAMPING Heart Rate FHR Baseline Rate: 150 Monitor Mode: External US Variability: Moderate 6-25 bpm Accelerations: 15X15 Decelerations: None Category: Category I Comments: PT REPORTED + MOVEMENT. Datetime: 10/08/2018 23:10 Stage of : OB Triage Maternal Assessment Level of Consciousness: Fully Conscious DTR's/Clonus: DTRs 2+; No Clonus Headache: Denies Blurred Vision: No Respiratory Effort: Unlabored; Regular Rhythm; Equal Expansion Breath Sounds, Left: Clear and Equal Breath Sounds, Right: Clear and Equal Nausea/Vomiting: Denies RUQ Epigastric Pain: Denies Lower Extremities Edema: None Degree: None Upper Extremities Edema: None Degree: None Facial Edema: None Temperature Route: Oral Fall Risk Assessment History of Falling: (0) No Secondary Diagnosis: (0) No Ambulatory Aid: (0) Bedrest/Nurse Assist IV Therapy: (0) No Gait: (0) Normal/Bedrest/Immobile Mental Status: (0) Oriented to Own Ability Fall Score: 0 Fall Risk Score Definition: No Risk: No action required Monitor Mode: External Contraction Comments: APPLIED Monitor Mode: External US Comments: APPLIED Pain Assessment Pain Scale: 0 Pain Presence: None/Denies Pain Type: N/A Datetime: 10/08/2018 23:03 Time of Arrival: 10/08/2018 22:55 EGA: 33.1 Arrived By: Wheelchair Arrived From: Emergency Dept Chief Complaint: FLU LIKE SYMPTOMS FEVER Movement: Present Contractions: Denies/Absent Rupture of Membranes: Denies Vaginal Bleeding: None Vaginal Discharge: Denies Recent Sexual Intercouse: Denies Abdominal Trauma: Not Applicable Patient Complaints: Other Additional Patient Complaints: COUGH X2 MONTHS Time Provider Notified: 10/08/2018 23:03 Provider Notified: DR. GOODRICH Initial Plan: EFM, BPP/KIRBY, U/A, CALL OB Datetime: 09/18/2018 21:30 Fall Score: 0 Fall Risk Score Definition: No Risk: No action required Datetime: 09/18/2018 21:16 EGA: 30.2
== END 2018-10-09 01:05 | disposition home or self-care (01) ==
LOC: OBT 23:00 → L-D 23:01 → OBT 10-09 01:05
PROVIDERS: ATTEND Obstetrics & Gynecology
DX: O26.893 Other specified pregnancy related conditions, third trimester (principal); R50.9 Fever, unspecified; R05 Cough; O09.523 Supervision of elderly multigravida, third trimester; Z3A.33 33 weeks gestation of pregnancy
CPT/HCPCS: 76818; 81001; 81003; Z7500; G0463

== ENCOUNTER 2018-11-07 10:59 | Inpatient (IN) | payer MEDICAID ==
[~2018-11-07] VITALS: Ht 154.9 cm; Wt 58.4 kg
[~2018-11-07 10:59] MED LIST changes: +ACET500C5 PO; -ALBU18HF INHALATION; +AMOX500C2 PO; -AZIT250T PO; +OSEL75CA23 PO
[2018-11-07] MEDS: LACTATED RINGER'S 1,000 ML IV SCH ×2 (11:44→17:49)
[2018-11-07 11:50] VITALS: BP 131/95; PULSE 85
[2018-11-07] MEDS ORDERED: CARBOPROST 250 MCG INJ IM PRN (12:00)
[2018-11-07] MEDS ORDERED: MISOPROSTOL 200 MCG TAB PR PRN (12:00)
[2018-11-07] MEDS ORDERED: BUTORPHANOL 2 MG INJ IV PRN ×2 (12:00)
[2018-11-07] MEDS ORDERED: OXYTOCIN 30 UNITS/LR 500 ML IV PRN (12:00)
[2018-11-07] MEDS ORDERED: OXYTOCIN 30 UNITS/LR 500 ML IV SCH ×2 (12:00)
[2018-11-07] MEDS ORDERED: LIDOCAINE 1% (MPF) 30 ML INJ INJ PRN (12:00)
[2018-11-07] MEDS ORDERED: METHYLERGONOVINE 0.2 MG INJ IM PRN (12:00)
[2018-11-07] MEDS: MISOPROSTOL 50 MCG CAPSULE PO SCH ×3 (12:47→21:29)
[2018-11-08] VITALS (9 sets, daily range): BP systolic 131–150; BP diastolic 86–97; PULSE 80–83; RESP 17–18; Ht 154.9 cm; Wt 58.4 kg
[2018-11-08] MEDS: MISOPROSTOL 50 MCG CAPSULE PO SCH ×3 (01:20→09:53)
[2018-11-08] MEDS: LACTATED RINGER'S 1,000 ML IV SCH ×2 (01:20→09:46)
[2018-11-08] MEDS ORDERED: MAGNESIUM SULFATE 4 GM/100 ML 100 ML IV ONE (11:30)
[2018-11-08] MEDS ORDERED: LABETALOL HCL 20MG INJ IV ONE (11:30)
[2018-11-08] MEDS: MAGNESIUM SULFATE 20 GM/500 ML 500 ML IV SCH ×2 (12:06→22:23)
[2018-11-08] MEDS: DEXTROSE 5%-LR 1,000 ML IV SCH (16:08)
[2018-11-08] MEDS: LACTATED RINGER'S 1,000 ML IV* SCH (16:08)
[2018-11-08] MEDS ORDERED: BENZOCAINE 20% 56 ML SPRAY TOP PRN (16:30)
[2018-11-08] MEDS ORDERED: METHYLERGONOVINE 0.2 MG INJ IM PRN (16:30)
[2018-11-08] MEDS ORDERED: LANOLIN HPA 1 PKT TOP PRN (16:30)
[2018-11-08] MEDS ORDERED: CARBOPROST 250 MCG INJ IM PRN (16:30)
[2018-11-08] MEDS ORDERED: ZOLPIDEM 5 MG TAB PO PRN (16:30)
[2018-11-08] MEDS ORDERED: OXYTOCIN 30 UNITS/LR 500 ML IV PRN (16:30)
[2018-11-08] MEDS ORDERED: WITCH HAZEL/GLYCERIN PAD PR PRN (16:30)
[2018-11-08] MEDS ORDERED: ACETAMINOPHEN 325 MG TAB PO PRN (16:30)
[2018-11-08] MEDS ORDERED: OXYCODONE/ASPIRIN (4.88/325) TAB PO PRN (16:30)
[2018-11-08] MEDS ORDERED: MISOPROSTOL 200 MCG TAB PR PRN (16:30)
[2018-11-08] MEDS ORDERED: DIPHENHYDRAMINE 50 MG INJ IV PRN (16:30)
[2018-11-08] MEDS ORDERED: SENNA/DOCUSATE NA (8.6MG/50MG) TAB PO PRN (16:30)
[2018-11-08] MEDS ORDERED: ONDANSETRON 4 MG INJ IV PRN (16:30)
[2018-11-08] MEDS: IBUPROFEN 600 MG TAB PO SCH (18:00)
--- NOTE | 2018-11-08 18:25 | LDN ---
Date/Time of Note Date/Time of Note DATE: 11/08/18 TIME: 18:20 Delivery Summary of normal male (SGA) evidence of abruptio with short cord Weeks of Gestation 38w2d Placenta Delivered: Spontaneously, Intact & Complete Meconium: none Episiotomy: No Perineal laceration: 0 Laceration repair: periurethral laceration no bleeding no repair Anesthesia type: None Estimated blood loss: 300 Sponge & Needle done & correct: Yes All needle counts correct: Yes Any foreign bodies felt in the: No Delivery Information Sex Infant Sex: male Apgars 1 Minute: 9 5 Minute: 9 Suctioning Nose & mouth suctioned at tammy: Yes Delee suction performed: Yes Umbilical Cord Umbilical cord with: 3 Vessels Cord presentations: no nuchal cord (short cord) Cord Blood was obtained: Yes Mother & Baby Disposition Disposition Mom & Baby to Maternity; Good: Yes Mom transferred to: Other Baby to NICU: No () ALVINA GOODRICH MD Nov 08, 2018 18:25
[2018-11-09] VITALS (15 sets, daily range): BP systolic 102–136; BP diastolic 58–92; PULSE 72–98; RESP 16–20
[2018-11-09] MEDS: DEXTROSE 5%-LR 1,000 ML IV SCH (00:08)
[2018-11-09] MEDS: LACTATED RINGER'S 1,000 ML IV* SCH (03:37)
[2018-11-09] MEDS: IBUPROFEN 600 MG TAB PO SCH ×4 (06:00→18:09)
[2018-11-09] MEDS: MAGNESIUM SULFATE 20 GM/500 ML 500 ML IV SCH (09:37)
--- NOTE | 2018-11-09 20:44 | HP ---
Date/Time of Note Date/Time of Note DATE: 11/09/18 TIME: 20:39 OB - History Hx of Present Free Text/Dictation Late entry note. Patient is seen on 11/08/2018 33 years old -0-1-2 with single intrauterine at 38 weeks and 2 days with LISBETH of 11/19/2018 with gestational hypertension. She states good movement. She denies nausea, vomiting, shortness of breath, chest pain, headache, visual changes, vaginal bleeding or LOF. Chief Complaint: Elevated blood pressure Estimated Due Date: November 19, 2018 : 4 Para: 2 Spontaneous : 1 Therapeutic : 0 Care: Good Care Ultrasounds: Normal mid trimester US Obstetrical Complications: Gestational Hypertension Medical Complications: None Past Family/Social History * Past Medical, Surgical, Family and Obstetric Histories reviewed which is unremarkable Blood Type: O+ Rubella: immune RPR/VDRL: Negative GBS Status: Negative HBsAG: Negative OB Admission Exam Vital Signs Vital Signs Vital Signs Date Temp Pulse Resp B/P (MAP) Pulse Ox O2 O2 Flow FiO2 Time Delivery Rate 11/09/18 98.1 76 18 109/85 Room Air 19:30 (93) 11/09/18 98 02:30 Physical Exam HEENT: WNL Heart: Rhythm Normal Lungs: Clear Abdomen: WNL Extremities: Normal Reflexes: Normal Cervical Dilatation: 2cm Effacement: 50% Station: -2 Membranes: Intact Heart Rate: 130's Accelerations: Accelerations Present Decelerations: No Decelerations Varibility: Moderate Contractions on Admission: < 5 Minutes Apart Intensity: Mild OB Assessment/Plan Other plan: 33 years old -0-1-2 single intrauterine at 38 weeks and 2 days with gestational hypertension - FHR: No sign of metabolic acidosis- Category I - Continuous EFM, toco - CBC, blood type and screen - Analgesia options with R/B/A discussed in detail with patient - Epidural per patient request - Please see the orders - Magnesium sulfate for seizure prophylaxis - O+/Rubella: Immune - GBS: Negative Admission, procedures, expectations, risks and possible complications have been discussed in detail with the patient. Risk of vaginal delivery including but not limited to bleeding, infection, cervical laceration, placental retention, injury to fetus, blood transfusion, blood transfusion related infection, risk of anesthesia, adhesion, cervical laceration, episiotomy/laceration, possible delivery with risk of bleeding, infection, injury to other organs (bowel, bladder, ureter, vessels, nerves), injury to fetus, blood transfusion, blood transfusion related infection, risk of anesthesia, scar and hernia formation, needs for future , removal of uterus or any other indicated surgery discussed with the patient. She expressed understanding and repeats the risks. All of her questions were answered. She signed the informed consent. PHYSICIAN'S VERIFICATION OF INFORMED CONSENT The patient was counseled regarding the procedure, its indications, risks, potential complications and alternatives and any questions were answered. Consent was obtained. PLANNED PROCEDURE/TREATMENT: Vaginal delivery, episiotomy, repair of laceration possible delivery GISELLE CARNES Nov 09, 2018 20:44
--- NOTE | 2018-11-09 20:49 | PN ---
Date/Time of Note Date/Time of Note DATE: 11/09/18 TIME: 20:44 OB Subjective Subjective Subjective PPD# 1 Patient is doing well. She denies nausea, vomiting, shortness of breath, chest pain, headache. She has been ambulating without difficulty, tolerating regular diet. Pain is well controlled on current medications OB Objective Objective Objective Vital Signs Date Temp Pulse Resp B/P (MAP) Pulse Ox O2 O2 Flow FiO2 Time Delivery Rate 11/09/18 98.1 76 18 109/85 Room Air 19:30 (93) 11/09/18 98 02:30 General: AAO X 3, comfortable, NAD, appropriate mood and affect. ABD: +BS. Soft, non-tender. Uterus 2 cm below umbilicus Flank: No CVA tenderness (B/L) LE: Mild edema. No clubbing, cyanosis, thigh or calf tenderness (B/L). Homans 'sign is negative OB Assessment/Plan Other plan: 33 years old G4P 301 3 with gestational hypertension s/p normal vaginal delivery at 38 weeks and 2 days. PPD#1 - AF, VSS - Contraception methods with R/B/A/FR discussed - Continue care - Discharge home tomorrow - Rx and instruction given - Follow up in 2 and 6 weeks at clinic GISELLE CARNES Nov 09, 2018 20:49
--- NOTE | 2018-11-09 20:52 | DS ---
Date/Time of Note Date/Time of Note DATE: 11/09/18 TIME: 20:49 Obstetrical Discharge Record Final Diagnosis Final Diagnosis: Term delivered Other Final Diagnosis 33 years old G4P 301 3 with gestational hypertension s/p normal vaginal delivery at 38 weeks and 2 days. PPD#1 - AF, VSS - Contraception methods with R/B/A/FR discussed - Continue care - Normal blood pressure after delivery - Discharge home tomorrow - Rx and instruction given - Follow up in 2 and 6 weeks at clinic Condition on Discharge Physical Assessment Last Vitals: Vital Signs Date Temp Pulse Resp B/P (MAP) Pulse Ox O2 O2 Flow FiO2 Time Delivery Rate 11/09/18 98.1 76 18 109/85 Room Air 19:30 (93) 11/09/18 98 02:30 Voiding: Yes Bowel Movement: Yes Breast: Soft, non-tender Fundus: Firm Calf Tenderness: No Patient Condition: Stable GISELLE CARNES Nov 09, 2018 20:52
[2018-11-10] VITALS: BP 117/81; PULSE 70; RESP 18
[2018-11-10 04:06] VITALS: BP 130/95; PULSE 73; RESP 18
[2018-11-10] MEDS: IBUPROFEN 600 MG TAB PO SCH ×4 (06:00→17:59)
[2018-11-10 07:50] VITALS: BP 138/84; PULSE 70; RESP 20
[2018-11-10] MEDS ORDERED: DIPHTH/TET/ACEL PERTUSS (ADULT) 0.5 ML VIAL IM* ONE (09:00)
[2018-11-10] MEDS ORDERED: MEASLES,MUMPS,RUBELLA VACCINE INJ SC* ONE (09:00)
--- NOTE | 2018-11-10 14:29 | PN ---
Date/Time of Note Date/Time of Note DATE: 11/10/18 TIME: 14:22 OB Subjective Subjective Subjective Denies any headache, blurred vision, epigastric pain the right upper quadrant pain. Patient be decreased. Baby's NICU. Has been pumping her breast. OB Objective Objective Objective General appearance: Alert and oriented x4 does not appear to be in any acute distress Abdomen: Soft, fundus palpable below the umbilicus. Nontender Breast: No evidence of mastitis or infection or engorgement Extremities: No calf tenderness, no clicks no edema no cord palpable VS - Last 72 Hours, by Label Date Temp Pulse Resp B/P (MAP) Pulse Ox O2 O2 Flow FiO2 Time Delivery Rate 11/10/18 98.1 70 20 138/84 Room Air 07:50 (102) 11/10/18 98.1 73 18 130/95 Room Air 04:06 (107) 11/10/18 97.8 70 18 117/81 Room Air 00:00 (93) 11/09/18 98.1 76 18 109/85 Room Air 19:30 (93) 11/09/18 98.4 78 16 115/58 16:10 (77) 11/09/18 98.4 78 16 115/58 16:05 (77) 11/09/18 97.7 72 20 121/79 12:00 (93) 11/09/18 97.7 75 20 116/71 10:38 (86) 11/09/18 97.8 98 18 102/72 09:38 (82) 11/09/18 97.8 95 18 116/72 08:38 (87) 11/09/18 98.7 96 18 114/80 07:30 (91) 11/09/18 98.4 83 18 111/73 Room Air 06:19 (86) 11/09/18 91 18 135/84 Room Air 05:03 (101) 11/09/18 85 18 131/84 Room Air 04:30 (100) 11/09/18 76 18 126/88 03:30 (101) 11/09/18 98.6 78 18 125/85 98 Room Air 02:30 (98) 11/09/18 18 136/92 Room Air 01:30 (107) 11/09/18 18 126/84 Room Air 00:30 (98) 11/08/18 18 140/92 Room Air 23:30 (108) 11/08/18 17 141/90 Room Air 22:30 (107) 11/08/18 98.6 82 18 136/90 Room Air 21:30 (105) 11/08/18 98.6 82 18 131/86 Room Air 20:30 (101) 11/08/18 98.7 83 18 135/89 98 Room Air 19:30 (104) 11/08/18 82 18 150/97 Room Air 18:25 (114) 11/08/18 80 18 141/92 Room Air 17:30 (108) 11/08/18 83 18 141/87 Room Air 16:35 (105) 11/08/18 98.2 18 139/95 Room Air 15:20 (110) OB Assessment/Plan Other Assessment: Status post day #2 Had couple of elevated blood pressure in the range of 140s to 150s however since yesterday in the range of 130s to 80s Asymptomatic. Patient can be discharged home Strict preeclampsia precautions and follow-up within 2 days after discharge from the hospital with primary LSW PCP discussed with the patient Patient verbalized understanding all questions were answered to the patient;s satisfaction STEPHANIE AARON MD Nov 10, 2018 14:28
[2018-11-10] MEDS ORDERED: LABETALOL 100 MG TAB PO SCH (14:30)
[2018-11-10 14:40] VITALS: BP 152/98; PULSE 71; RESP 20
[2018-11-10] MEDS: LABETALOL 100 MG TAB PO SCH ×2 (14:56→21:07)
[2018-11-10 15:44] VITALS: BP 137/99; PULSE 85; RESP 20
[2018-11-10 20:00] VITALS: BP 143/99; PULSE 82; RESP 18
[2018-11-10] MEDS: GUAIFENESIN 20 MG/ML 5ML CUP PO PRN (21:07)
[2018-11-11] VITALS (9 sets, daily range): BP systolic 114–155; BP diastolic 78–113; PULSE 69–91; RESP 18–19
[2018-11-11] MEDS: IBUPROFEN 600 MG TAB PO SCH ×5 (06:00→23:28)
[2018-11-11] MEDS: GUAIFENESIN 20 MG/ML 5ML CUP PO PRN ×3 (08:45→20:52)
[2018-11-11] MEDS: LABETALOL 100 MG TAB PO SCH ×2 (08:45→20:49)
[2018-11-11] MEDS: NIFEdipine (XL) 30 MG TAB PO SCH (15:26)
--- NOTE | 2018-11-11 16:46 | QN ---
Documentation Comment no headache no sob no visual disturbance BP 122/95 diastoloic high repeat bp >than 140's/96 with labetalol 200mg bid fundus firm lochia min calf neg for tenderness A post #2 HTN P add procardia 30mg ALVINA GOODRICH MD Nov 11, 2018 16:46
[2018-11-12 04:11] VITALS: BP 102/65; PULSE 74; RESP 19
[2018-11-12] MEDS: IBUPROFEN 600 MG TAB PO SCH ×2 (05:33→11:20)
[2018-11-12 07:25] VITALS: BP 111/76; PULSE 82; RESP 16
[2018-11-12] MEDS: NIFEdipine (XL) 30 MG TAB PO SCH (09:27)
[2018-11-12] MEDS: LABETALOL 100 MG TAB PO SCH (09:29)
--- NOTE | 2018-11-12 11:47 | PN ---
Date/Time of Note Date/Time of Note DATE: 11/12/18 TIME: 11:20 OB Subjective Subjective Subjective PPD# 4 Patient is doing well. She denies nausea, vomiting, shortness of breath, chest pain, headache. She has been ambulating without difficulty, tolerating regular diet. Pain is well controlled on current medications OB Objective Objective Objective VS - Last 72 Hours, by Label Date Temp Pulse Resp B/P (MAP) Pulse Ox O2 O2 Flow FiO2 Time Delivery Rate 11/12/18 98.0 82 16 111/76 Room Air 07:25 (88) 11/12/18 98.0 74 19 102/65 Room Air 04:11 (77) 11/11/18 91 18 122/79 Room Air 21:38 (93) 11/11/18 97.9 77 19 134/93 Room Air 20:00 (107) 11/11/18 79 18 137/94 17:25 (108) 11/11/18 138/101 Room Air 15:26 (113) 11/11/18 98.3 86 18 155/113 Room Air 15:05 (127) 11/11/18 98.3 69 18 144/96 Room Air 11:51 (112) 11/11/18 98.3 77 18 122/95 Room Air 08:40 (104) 11/11/18 98.5 80 18 114/78 Room Air 03:53 (90) 11/11/18 98.0 77 18 122/78 Room Air 00:40 (93) 11/10/18 98.4 82 18 143/99 Room Air 20:00 (114) 11/10/18 98.8 85 20 137/99 Room Air 15:44 (112) 11/10/18 98.9 71 20 152/98 Room Air 14:40 (116) 11/10/18 98.1 70 20 138/84 Room Air 07:50 (102) 11/10/18 98.1 73 18 130/95 Room Air 04:06 (107) 11/10/18 97.8 70 18 117/81 Room Air 00:00 (93) 11/09/18 98.1 76 18 109/85 Room Air 19:30 (93) 11/09/18 98.4 78 16 115/58 16:10 (77) 11/09/18 98.4 78 16 115/58 16:05 (77) 11/09/18 97.7 72 20 121/79 12:00 (93) General: AAO X 3, comfortable, NAD, appropriate mood and affect. ABD: +BS. Soft, non-tender. Uterus 2 cm below umbilicus Flank: No CVA tenderness (B/L) LE: Mild edema. No clubbing, cyanosis, thigh or calf tenderness (B/L). Homans 'sign is negative OB Assessment/Plan Other plan: 33 years old with chronic hypertension s/p normal vaginal delivery. PPD#4. Patient initially declined history of hypertension prior to . Her blood pressure at 1 1/2 day of were normal. She had elevated blood pressure later, which finally controlled with Procardia 30 mg XL and labetalol 200 mg every 12 hours. Rest of course was unremarkable. She is ambulating and tolerating regular diet. She is voiding without difficulty. Pain is controlled on current medication. - AF, VSS - Baby is in NICU, planning to discharge home today - Contraception methods with R/B/A/FR discussed - Continue care - Discharge home - Rx and instruction given - Follow up in 2 and 6 weeks at clinic 2) The patient has history of syphilis in 2007. She was seen at [place] with creamy and was treated. FTA-ABS and RPR was positive on 10/18/2018. RPR during current admission is negative. I strongly recommend follow-up with orthotic with cleaning. She expressed understanding and has agreed to be to follow-up at that clinic. GISELLE CARNES Nov 12, 2018 11:46
--- NOTE | 2018-11-12 11:48 | DS ---
Date/Time of Note Date/Time of Note DATE: 11/12/18 TIME: 11:47 Obstetrical Discharge Record Final Diagnosis Final Diagnosis: Term delivered Other Final Diagnosis 33 years old with chronic hypertension s/p normal vaginal delivery. PPD#4. Patient initially declined history of hypertension prior to . Her blood pressure at 1 1/2 day of were normal. She had elevated blood pressure later, which finally controlled with Procardia 30 mg XL and labetalol 200 mg every 12 hours. Rest of course was unremarkable. She is ambulating and tolerating regular diet. She is voiding without difficulty. Pain is controlled on current medication. - AF, VSS - Baby is in NICU, planning to discharge home today - Contraception methods with R/B/A/FR discussed - Continue care - Discharge home - Rx and instruction given - Follow up in 2 and 6 weeks at clinic 2) The patient has history of syphilis in 2007. She was seen at [place] with creamy and was treated. FTA-ABS and RPR was positive on 10/18/2018. RPR during current admission is negative. I strongly recommend follow-up with orthotic with cleaning. She expressed understanding and has agreed to be to follow-up at that clinic. Vaginal Delivery Obstetrical Delivery: Spontaneous Condition on Discharge Physical Assessment Last Vitals: Vital Signs Date Temp Pulse Resp B/P (MAP) Pulse Ox O2 O2 Flow FiO2 Time Delivery Rate 11/12/18 98.0 82 16 111/76 Room Air 07:25 (88) 11/09/18 98 02:30 Voiding: Yes Bowel Movement: Yes Breast: Soft, non-tender Fundus: Firm Calf Tenderness: No Patient Condition: Stable GISELLE CARNES Nov 12, 2018 11:48
--- NOTE | 2018-11-13 12:42 | DELSUM ---
Delivery Summary A-C Datetime Report Generated by CPN: 11/13/2018 12:41 DELIVERY PERSONNEL Temp Recruiter: Lulu Tipton MATERNAL INFORMATION Delivery Anesthesia: None Medications in Delivery: LR W/ 30 UNITS PITOCIN Delivery QBL (ml): 357 Placenta Cultured: No Maternal Complications: Other Other Maternal Complications: LUPUS/GHTN LABOR SUMMARY EDC: 11/19/2018 00:00 No. Babies in Womb: 1 Attempted: No Labor Anesthesia: None LABOR INFORMATION Reason for Induction: Gest. HTN/PreEclam/Eclamp Onset of Labor: 11/07/2018 12:46 Complete Dilatation: 11/08/2018 12:59 Cervical Ripening Agents: Cytotec @ Oxytocin: N/A Group B Beta Strep: Negative Antibiotics # of Doses: 0 Steroids Given: None Reason Steroids Not Administered: Not Applicable MEMBRANES Membranes Rupture Method: Artificial Rupture of Membranes: 11/08/2018 13:00 Length of Rupture (hr): 0.15 Amniotic Fluid Color: Clear Amniotic Fluid Amount: Moderate Amniotic Fluid Odor: None STAGES OF LABOR Stage 1 hr: 24 Stage 1 min: 13 Stage 2 hr: 0 Stage 2 min: 10 Stage 3 hr: 0 Stage 3 min: 5 Total Time in Labor hr: 24 Total Time in Labor min: 28 VAGINAL DELIVERY Episiotomy: None Laceration Extension: N/A Laceration Type: Periurethral Laceration Repair: No Initial Vag Sponge Count: 10 Final Vag Sponge Count: 10 Initial Vag Sharps Count: 1 Final Vag Sharps Count: 1 Sponge Count Correct: Yes; Vaginal Sweep Performed Sharps Count Correct: Yes BABY A INFORMATION Infant Delivery Date/Time: 11/08/2018 13:09 Method of Delivery: Vaginal Born in Route : No : N/A Forceps: N/A Vacuum Extraction: N/A Shoulder Dystocia : N/A SHOULDER DYSTOCIA BABY A Delivery Date/Time: 11/08/2018 13:09 PRESENTATION/POSITION BABY A Presentation: Cephalic Cephalic Presentation: Vertex Vertex Position: Left Occipital Anterior Breech Presentation: N/A PLACENTA INFORMATION BABY A Placenta Delivery Time : 11/08/2018 13:14 Placenta Method of Delivery: Spontaneous Placenta Status: Delivered SCORES BABY A Heart Rate 1 min: >100 bpm Resp Effort 1 min: Good Cry Reflex Irritability 1 min: Cough/Sneeze/Pulls Away Muscle Tone 1 min: Active Motion Color 1 min: Body [place], Extremit Blue Resuscitation Effort 1 min: Tactile Stimulation SCORE 1 MIN: 9 Heart Rate 5 min: >100 bpm Resp Effort 5 min: Good Cry Reflex Irritability 5 min: Cough/Sneeze/Pulls Away Muscle Tone 5 min: Active Motion Color 5 min: Body [place], Extremit Blue Resuscitation Effort 5 min: Tactile Stimulation SCORE 5 MIN: 9 INFORMATION BABY A Gestational Age at Delivery: 38.3 Gestational Status: Early Term- 37- 38.6 Weeks Outcome : Liveborn Condition : Stable Infant Sex: Male IDENTIFICATION/MEDS BABY A ID Band Number: [id number] ID Band Location: Right Leg; Left Arm Sensor Applied: Yes Sensor Number: [id number] Sensor Location : Cord Clamp Vitamin K Given : Not Given Erythromycin Given: Not Given WEIGHT/LENGTH BABY A Birthweight (gm): 2205 Weight (lb): 4 Infant Weight (oz): 14 Infant Length (in): 18.50 Infant Length (cm): 46.99 CORD INFORMATION BABY A No. Cord Vessels: 3 Nuchal Cord : N/A Cord Blood Taken: Yes Infant Suction: Mouth; Nose ASSESSMENT BABY A Complications: None Physical Findings at Delivery: Within Normal Limits Respirations: Appears Normal Manager Trade/ALS Called : No Infant Care By: DARLEEN HODGE Transferred To: Remains with Mother
--- NOTE | 2018-11-14 22:59 | NSTRPT ---
NST Information Datetime Report Generated by CPN: 11/14/2018 22:59 Datetime: 11/07/2018 09:08 NST Information EGA: 38.2 Test Number: 6 Time on Monitor: 11/07/2018 09:33 Time off Monitor: 11/07/2018 10:03 NST Duration (Min): 30 Reason for NST: Other Reason for NST Other: Lupus, Advanced Maternal Age Test and Monitor Explained: Monitor Explained; Test Explained; Verbalized Understanding Pulse: 78 Resp: 18 SBP: 133 DBP: 91 Test Evaluation Patient States Movement: Present Contraction Frequency: none FHR Baseline : 130 Variability: Moderate 6-25bpm Accelerations: 15X15 Decelerations: None FHR Category: Category I NST Results: Reactive Provider Notified: Dr Maloney _ Dr Hernandez notified Comments: To u/s. KIRBY 14.0cm. CEPHALIC. pt states blurry vision last week and headache yesterday. 1008-Report to Dr Maloney, pt Hx, VS, c/o recommends delivery. 1010-Report to Dr Hernandez of above, orders received to adm to L_D for induction. Report called to DARLEEN [place], L_D. 1015-POC explained to pt by Erick Luong RN, pt to go directly to L_D at this time, States understanding. Electronically Signed By E-Signature: with User ID: [id number] Datetime: 11/03/2018 09:30 NST Information EGA: 37.5 NST Duration (Min): 22 Datetime: 10/31/2018 09:07 NST Information EGA: 37.2 NST Duration (Min): 21 Datetime: 10/27/2018 09:30 NST Information EGA: 36.5 NST Duration (Min): 27 Datetime: 10/24/2018 09:37 NST Information EGA: 36.2 NST Duration (Min): 33 Datetime: 10/20/2018 13:45 NST Information EGA: 35.5 NST Duration (Min): 22
== END 2018-11-12 12:40 | disposition home or self-care (01) | DRG 805 ==
LOC: OBT 10:59 → L-D 11:00 → OBT 11:00 → L-D 11:01 → PP1 11-08 15:20
PROVIDERS: ADMIT Obstetrics & Gynecology; ATTEND Obstetrics & Gynecology
PROC: 10E0XZZ Delivery of Products of Conception, External Approach (ICD-10-PCS; principal; 2018-11-08)
DX: O10.02 Pre-existing essential hypertension complicating childbirth (principal); O45.93 Premature separation of placenta, unspecified, third trimester; Z37.0 Single live birth; O69.3XX0 Labor and delivery complicated by short cord, not applicable or unspecified; O36.5930 Maternal care for other known or suspected poor fetal growth, third trimester, not applicable or unspecified; O71.82 Other specified trauma to perineum and vulva; Z3A.38 38 weeks gestation of pregnancy; Z86.19 Personal history of other infectious and parasitic diseases; Z23 Encounter for immunization
CPT/HCPCS: 80053; 83735; 84560; 85025; 85610; 85730; 86592; 86850; 86900; 86901; 88307; 90715; J2590; J3475; J7120; J7121